=== PATIENT | female | born 1935 | race Caucasian/White ===

== ENCOUNTER 2017-05-17 14:15 | Inpatient (IN) | payer MEDICARE, OTHER ==
[~2017-05-17] VITALS: Ht 170.2 cm; Wt 56.5 kg
[2017-05-17 15:30] VITALS: BP 98/55; PULSE 64; TEMP 98.7
[2017-05-17] MEDS ORDERED: HYZAAR 12.5 MG-1 TAB PO (15:41)
[2017-05-17] MEDS ORDERED: CARDIZEM CD 30300 MG PO (15:41)
[2017-05-17] MEDS ORDERED: FOLIC ACID 11 MG/TA1 PO (15:42)
[2017-05-17] MEDS ORDERED: METHOTREXA2.5 MG/TAB PO (15:42)
[2017-05-17] MEDS ORDERED: FOSAMAX 70MG TA70 MG PO (15:43)
[2017-05-17] MEDS ORDERED: XALATAN EYE DROPS OU (15:44)
[2017-05-17] MEDS ORDERED: THERA TABS1 TAB PO (15:48)
[2017-05-17] MEDS ORDERED: VITAMIN D31000 IU PO (15:48)
[2017-05-17] MEDS ORDERED: CALTRATE-600 W600 MG PO (15:49)
[2017-05-17] MEDS ORDERED: CARTIA XT300 MG PO (15:49)
[2017-05-17] MEDS ORDERED: TAZTIA300 (15:51)
[2017-05-17] MEDS ORDERED: THERATEARS SGL PO (15:55)
[2017-05-17 18:04] LABS: BASO # 0.1 (0.0-0.2); BASO % 0.5 % (0.0-2.0); GRAN # 9.9 (1.4-6.5); GRAN % 88.9 % (42.2-75.2); HEMATOCRIT 33.4 % (37.0-47.0); HEMOGLOBIN 11.1 g/dl (12.5-16.0); LYMPH # 0.3 (1.2-3.4); LYMPH % 2.8 % (20.0-51.0); MEAN CELL VOLUME 94 fl (80.0-100.0); MEAN CORPUSCULAR HEMOGLOBIN 31 pg (27.0-31.0); MEAN CORPUSCULAR HGB CONC 33 g/dl (33.0-37.0); MEAN PLATELET VOLUME 10.4 fl (7.4-10.4); MONO # 0.8 (0.1-0.6); PLATELET COUNT 169 K/mm3 (130-400); RED BLOOD COUNT 3.55 M/mm3 (4.10-5.30); REDCELL DISTRIBUTION WIDTH-CV 14.3 % (11.5-14.5); WHITE BLOOD COUNT 11.2 K/mm3 (4.8-10.8)
[2017-05-17 18:07] LABS: INR 1.1 (0.8-3.0); PROTHROMBIN TIME 12.2 SECONDS (9.7-12.8)
[2017-05-17 18:20] LABS: ADJUSTED CALCIUM 9.2 mg/dL (8.4-10.2); ALBUMIN 3.6 gm/dL (3.5-5.0); BILIRUBIN,TOTAL 0.8 mg/dL (0.0-1.0); CALCIUM 8.9 mg/dL (8.4-10.2); CREATININE, serum 0.63 mg/dL (0.52-1.25); POTASSIUM 3.5 mmol/L (3.4-5.0); TOTAL PROTEIN 6.5 gm/dL (6.4-8.2)
[2017-05-17 18:34] VITALS: BP 131/60; PULSE 67; TEMP 98.2
[2017-05-17 22:00] VITALS: BP 133/52; PULSE 73; TEMP 99.3
[2017-05-17 23:21] LABS: PH 6 (5-8); SQUAMOUS EPITHELIAL None Seen /hpf; URINE APPEARANCE Clear; URINE BACTERIA None Seen /hpf; URINE BILIRUBIN Negative (NEGATIVE); URINE BLOOD Negative (NEGATIVE); URINE COLOR Yellow; URINE GLUCOSE 3+ (NEGATIVE); URINE KETONE Trace (NEGATIVE); URINE UROBILINOGEN Negative (NEGATIVE); URINE WBC 0-2 /hpf
[2017-05-18] VITALS (10 sets, daily range): BP systolic 114–156; BP diastolic 49–88; PULSE 60–75; TEMP 98.2–99.1
[2017-05-18 07:24] LABS: MEAN CELL VOLUME 92 fl (80.0-100.0); MEAN CORPUSCULAR HGB CONC 34 g/dl (33.0-37.0); MEAN PLATELET VOLUME 10.9 fl (7.4-10.4); PLATELET COUNT 159 K/mm3 (130-400); RED BLOOD COUNT 3.34 M/mm3 (4.10-5.30); REDCELL DISTRIBUTION WIDTH-CV 14.5 % (11.5-14.5); WHITE BLOOD COUNT 9.3 K/mm3 (4.8-10.8)
[2017-05-18 07:26] LABS: ADD PATHOLOGY DIFF REVIEW NO; HEMATOCRIT 30.7 % (37.0-47.0); HEMOGLOBIN 10.4 g/dl (12.5-16.0); MEAN CORPUSCULAR HEMOGLOBIN 31 pg (27.0-31.0)
[2017-05-18 07:39] LABS: CALCIUM 8.7 mg/dL (8.4-10.2); CREATININE, serum 0.64 mg/dL (0.52-1.25); POTASSIUM 3.3 mmol/L (3.4-5.0)
[2017-05-18 07:57] LABS: BAND 5 % (0-10); NEUTROPHILS 89 % (42.0-75.2); TOTAL CELLS COUNTED 100
[2017-05-18 07:58] LABS: HYPOCHROMIA 1+; PLATELET ESTIMATE NORMAL (NORMAL)
[2017-05-19 01:05] VITALS: BP 144/71; PULSE 71; TEMP 98.2
[2017-05-19 04:00] VITALS: BP 138/70; PULSE 70; TEMP 99.4
[2017-05-19 10:29] LABS: HEMATOCRIT 29.6 % (37.0-47.0); HEMOGLOBIN 9.9 g/dl (12.5-16.0)
[2017-05-19 10:31] VITALS: BP 135/64; PULSE 85; TEMP 97.6
[2017-05-19 14:42] VITALS: BP 122/54; PULSE 65; TEMP 98.4
[2017-05-19 17:29] VITALS: BP 121/65; PULSE 72; TEMP 98.3
[2017-05-19 22:00] VITALS: BP 130/59; PULSE 63; TEMP 99.2
[2017-05-20 01:55] VITALS: BP 128/60; PULSE 66; TEMP 98.8
[2017-05-20 05:21] VITALS: BP 134/65; PULSE 69; TEMP 97.9
[2017-05-20 08:01] LABS: HEMATOCRIT 28.9 % (37.0-47.0); HEMOGLOBIN 9.6 g/dl (12.5-16.0)
[2017-05-20 08:14] LABS: CALCIUM 8.4 mg/dL (8.4-10.2); CREATININE, serum 0.62 mg/dL (0.52-1.25); MAGNESIUM 1.8 mg/dL (1.6-2.3); POTASSIUM 3.5 mmol/L (3.4-5.0)
[2017-05-20 09:58] VITALS: BP 100/60; PULSE 79; TEMP 97.8
[2017-05-20 14:05] VITALS: BP 112/49; PULSE 80; TEMP 98.7
[2017-05-20 17:45] VITALS: BP 125/63; PULSE 76; TEMP 98.3
[2017-05-20 22:14] VITALS: BP 122/50; PULSE 74; TEMP 99.2
[2017-05-21 01:51] VITALS: BP 121/57; PULSE 68; TEMP 98
[2017-05-21 05:37] VITALS: BP 134/58; PULSE 69; TEMP 98.3
[2017-05-21 09:41] VITALS: BP 113/50; PULSE 80; TEMP 98.8
[2017-05-21 14:39] VITALS: BP 135/52; PULSE 73; TEMP 98.8
[2017-05-21] MEDS ORDERED: IPRATROPIUM BROM3 M1 IH (15:00)
[2017-05-21] MEDS ORDERED: FERROUS SU325 MG/TAB PO (15:02)
[2017-05-21] MEDS ORDERED: SENOKOT S 50 MG1 TAB PO (15:02)
[2017-05-21] MEDS ORDERED: GLUCOPHAGE500 MG/TAB PO (15:02)
[2017-05-21] MEDS ORDERED: MILK OF MA400 MG/52 PO (15:03)
[2017-05-21] MEDS ORDERED: DULCOLAX S10 MG/SUPP RC (15:03)
[2017-05-21] MEDS ORDERED: ASPI325T6 PO (15:04)
[2017-05-21] MEDS ORDERED: NORCO 325 MG-51 TAB PO (15:14)
[2017-05-21 18:01] VITALS: BP 119/50; PULSE 79; TEMP 98.2
[2017-05-21 22:00] VITALS: BP 146/50; PULSE 90; TEMP 97.9
[2017-05-22 05:01] VITALS: BP 139/63; PULSE 78; TEMP 98.2
[2017-05-22 09:41] VITALS: BP 142/65; PULSE 78; TEMP 98.3
[2017-05-22 14:23] VITALS: BP 142/65; PULSE 78; TEMP 98.3
== END 2017-05-22 16:03 | DRG 470 ==
LOC: SURG 14:15
PROVIDERS: Internal Medicine; Orthopaedic Surgery Sports Medicine; Physician Assistant
PROC: 0SRR0J9 Replacement of Right Hip Joint, Femoral Surface with Synthetic Substitute, Cemented, Open Approach (ICD-10-PCS; principal; 2017-05-18 14:00)
PROC: 0PSK04Z Reposition Right Ulna with Internal Fixation Device, Open Approach (ICD-10-PCS; 2017-05-18 14:00)
DX: M80.051A Age-related osteoporosis with current pathological fracture, right femur, initial encounter for fracture (principal); M80.031A Age-related osteoporosis with current pathological fracture, right forearm, initial encounter for fracture; E11.65 Type 2 diabetes mellitus with hyperglycemia; I10 Essential (primary) hypertension; M06.9 Rheumatoid arthritis, unspecified; W01.0XXA Fall on same level from slipping, tripping and stumbling without subsequent striking against object, initial encounter; I48.0 Paroxysmal atrial fibrillation; D50.0 Iron deficiency anemia secondary to blood loss (chronic); I27.2 Other secondary pulmonary hypertension
CPT/HCPCS: 99223-AI; 99231-AI; 99232-AI; 99233-AI; 99239; A9284; C1713; C1776; J0690; J1100; J1815; J2250; J2270; J2405; J2704; J2795; J3010; J7030; J7120; J8610

== ENCOUNTER 2017-05-22 16:06 | Inpatient (IN) | payer MEDICARE, OTHER ==
[~2017-05-22] VITALS: Ht 170.2 cm; Wt 59.8 kg
[~2017-05-22 16:06] MED LIST: ASPI325T6 PO; CALTRATE-600 W600 MG PO; CARDIZEM CD 30300 MG PO; CARTIA XT300 MG PO; DULCOLAX S10 MG/SUPP RC; FERROUS SU325 MG/TAB PO; FOLIC ACID 11 MG/TA1 PO; FOSAMAX 70MG TA70 MG PO; GLUCOPHAGE500 MG/TAB PO; HYZAAR 12.5 MG-1 TAB PO; IPRATROPIUM BROM3 M1 IH; METHOTREXA2.5 MG/TAB PO; MILK OF MA400 MG/52 PO; NORCO 325 MG-51 TAB PO; SENOKOT S 50 MG1 TAB PO; TAZTIA300; THERA TABS1 TAB PO; THERATEARS SGL PO; VITAMIN D31000 IU PO; XALATAN EYE DROPS OU
[2017-05-22 18:24] VITALS: BP 130/56; PULSE 76; TEMP 99.4
[2017-05-22 18:58] VITALS: BP 130/56; PULSE 76; TEMP 99.4
[2017-05-23 06:24] VITALS: BP 131/58; PULSE 76; TEMP 98.3
[2017-05-23 06:55] LABS: BASO % 0.3 % (0.0-2.0); EOS # 0.2 (0.0-0.7); EOS % 2.3 % (0-4.0); GRAN # 7.3 (1.4-6.5); GRAN % 81.2 % (42.2-75.2); LYMPH # 0.5 (1.2-3.4); LYMPH % 5.5 % (20.0-51.0); MEAN CELL VOLUME 94 fl (80.0-100.0); MEAN CORPUSCULAR HGB CONC 33 g/dl (33.0-37.0); MEAN PLATELET VOLUME 10.7 fl (7.4-10.4); MONO # 0.9 (0.1-0.6); PLATELET COUNT 169 K/mm3 (130-400); RED BLOOD COUNT 2.95 M/mm3 (4.10-5.30); REDCELL DISTRIBUTION WIDTH-CV 14.7 % (11.5-14.5)
[2017-05-23 06:56] LABS: HEMATOCRIT 27.8 % (37.0-47.0); HEMOGLOBIN 9.2 g/dl (12.5-16.0); MEAN CORPUSCULAR HEMOGLOBIN 31 pg (27.0-31.0)
[2017-05-23 06:58] LABS: PROTHROMBIN TIME 11.6 SECONDS (9.7-12.8)
[2017-05-23 07:08] LABS: ADJUSTED CALCIUM 9.5 mg/dL (8.4-10.2); ALBUMIN 2.7 gm/dL (3.5-5.0); BILIRUBIN,TOTAL 0.8 mg/dL (0.0-1.0); CALCIUM 8.5 mg/dL (8.4-10.2); CREATININE, serum 0.58 mg/dL (0.52-1.25); TOTAL PROTEIN 5.4 gm/dL (6.4-8.2)
[2017-05-23 16:11] VITALS: BP 144/46; PULSE 84; TEMP 99.6
[2017-05-24 05:46] VITALS: BP 129/57; PULSE 77; TEMP 97.6
[2017-05-24 18:12] VITALS: BP 143/52; PULSE 81; TEMP 100.1
[2017-05-24 23:36] VITALS: TEMP 98.4
[2017-05-25 05:48] VITALS: BP 138/61; PULSE 74; TEMP 98.2
[2017-05-25 16:00] VITALS: BP 122/51; PULSE 74; TEMP 99.5
[2017-05-26 04:49] VITALS: BP 135/59; PULSE 66; TEMP 98.5
[2017-05-26 17:08] VITALS: BP 116/77; PULSE 68; TEMP 98.8
[2017-05-27 05:49] VITALS: BP 124/54; PULSE 79; TEMP 98.9
[2017-05-27 16:57] VITALS: BP 131/52; PULSE 74; TEMP 98.8
[2017-05-28 05:13] VITALS: BP 116/47; PULSE 73; TEMP 98.3
[2017-05-28 14:00] VITALS: BP 133/38; PULSE 72; TEMP 97.9
[2017-05-29 06:47] VITALS: BP 145/62; PULSE 86; TEMP 99.3
[2017-05-29 16:25] VITALS: BP 131/58; PULSE 77; TEMP 99.5
[2017-05-30 04:52] VITALS: BP 125/76; PULSE 73; TEMP 98.9
[2017-05-30 16:02] VITALS: BP 133/54; PULSE 85; TEMP 99.5
[2017-05-31 06:10] VITALS: BP 128/58; PULSE 68; TEMP 98.6
[2017-05-31 17:35] VITALS: BP 135/56; PULSE 82; TEMP 99.7
[2017-06-01 05:18] VITALS: BP 154/62; PULSE 75; TEMP 99.3
[2017-06-01] MEDS ORDERED: TYLENOL 325MG325 MG PO (09:22)
[2017-06-01] MEDS ORDERED: GLUCOPHAGE850 MG/TAB PO (09:23)
[2017-06-01] MEDS ORDERED: NORCO 325 MG-51 TAB PO (09:24)
[2017-06-01] MEDS ORDERED: HCTZ12.5TAB PO (09:24)
[2017-06-01 10:02] VITALS: BP 154/62; PULSE 75; TEMP 99.3
== END 2017-06-01 10:40 | disposition swing bed (61) | DRG 561 ==
PROVIDERS: Internal Medicine
PROC: 3E0U33Z Introduction of Anti-inflammatory into Joints, Percutaneous Approach (ICD-10-PCS; principal; 2017-05-29)
PROC: 3E0U3BZ Introduction of Anesthetic Agent into Joints, Percutaneous Approach (ICD-10-PCS; 2017-05-29)
DX: M80.051D Age-related osteoporosis with current pathological fracture, right femur, subsequent encounter for fracture with routine healing (principal); M80.031D Age-related osteoporosis with current pathological fracture, right forearm, subsequent encounter for fracture with routine healing; W18.30XD Fall on same level, unspecified, subsequent encounter; I10 Essential (primary) hypertension; E11.9 Type 2 diabetes mellitus without complications; M06.9 Rheumatoid arthritis, unspecified; I48.0 Paroxysmal atrial fibrillation; D50.0 Iron deficiency anemia secondary to blood loss (chronic); M25.512 Pain in left shoulder
CPT/HCPCS: 99222-AI; 99232-AI; 99239; J1815; J3301; J8610